=== PATIENT | female | born 1955 | race Caucasian/White ===

== ENCOUNTER → 2022-05-22 13:50 | Outpatient (REF) | payer MEDICARE, SELFPAY | LOC: DHCBS MAIN 13:50 | PROVIDERS: ATTENDING PHYSICIAN Nuclear Medicine Nuclear Cardiology; FAMILY PHYSICIAN Family Medicine | DX: R94.31 Abnormal electrocardiogram [ECG] [EKG] (principal); I49.1 Atrial premature depolarization; Z82.49 Family history of ischemic heart disease and other diseases of the circulatory system; R03.0 Elevated blood-pressure reading, without diagnosis of hypertension | CPT/HCPCS: 93306 ==

== ENCOUNTER → 2023-05-21 11:52 | Outpatient (REF) | payer MEDICARE, SELFPAY | LOC: WDC 11:52 | PROVIDERS: ATTENDING PHYSICIAN Obstetrics & Gynecology Gynecology; FAMILY PHYSICIAN Internal Medicine | DX: Z12.31 Encounter for screening mammogram for malignant neoplasm of breast (principal) | CPT/HCPCS: 77063; 77067 ==

== ENCOUNTER → 2024-01-24 09:03 | Outpatient (REF) | payer MEDICARE, BC, SELFPAY | LOC: MRI 3T 09:03 | PROVIDERS: ATTENDING PHYSICIAN Specialist; FAMILY PHYSICIAN Internal Medicine | DX: G35 Multiple sclerosis (principal) | CPT/HCPCS: 70551 ==

== ENCOUNTER 2024-01-29 10:27 | Inpatient (IN) | payer BC, MEDICARE, SELFPAY ==
[2024-01-28] VITALS (8 sets, daily range): BP systolic 133–178; BP diastolic 78–91; BMI 23.8; BMI 22.5
[2024-01-28 16:21] LABS: % Basophils 0.3 % (0-2); % Eosinophils 0.9 % (0-6); % Immature Granulocytes 0.6 % (0-0.5); % Lymphocytes 19.2 % (20.5-51.1); % Monocytes 7.4 % (1.7-9.3); % Neutrophils 71.6 % (42.2-75.2); Absolute Eosinophils 0.1 10^3/uL (0-0.7); Absolute Immature Granulocytes 0.1 10^3/uL (0-0.05); Absolute Lymphocytes 1.7 10^3/uL (1.2-3.4); Absolute Monocytes 0.7 10^3/uL (0.1-0.6); Absolute Neutrophils 6.4 10^3/uL (1.4-6.5); Hematocrit 38.5 % (37.0-47.0); Hemoglobin 12.3 g/dL (12.0-16.0); Mean Corp Hgb Conc. 31.9 g/dL (33.0-37.0); Mean Corpuscular Hgb 24.9 pg (27.0-31.0); Mean Corpuscular Volume 78.1 fL (81.0-99.0); Mean Platelet Volume 9.5 fL (7.4-10.4); Nucleated Red Blood Cells % 0 %; Platelet Count 266 10^3/uL (130-400); Red Blood Cell Count 4.93 10^6/uL (4.20-5.40); Red Cell Dist. Width 14.6 % (11.5-14.5); White Blood Cell Count 8.9 10^3/uL (4.8-10.8)
[2024-01-28 16:36] LABS: Blood Urea Nitrogen 17 mg/dl (7-17); Calcium 8.3 mg/dl (8.4-10.2); Carbon Dioxide 24 mmol/L (22-30); Chloride 104 mmol/L (98-107); Estimated Creatinine Clearance 75 ml/min; Glucose 108 mg/dl (70-99); Potassium 3.4 mmol/L (3.5-5.1); Sodium 137 mmol/L (135-145); eGFR > 60.00
[2024-01-28] MEDS: TORADOL 30 MG IM (18:00)
[2024-01-28] MEDS: ROXICODONE 5 MG PO ×2 (18:00→23:33)
--- NOTE | 2024-01-28 20:32 | ED.GENMED ---
History of Present Illness
General
Chief Complaint: Fall
Source: patient
Exam Limitations: none
Time Seen by Provider: 01/28/24 16:27
Nursing documentation reviewed up to this point in time: agreed with
History of Present Illness
History of Present Illness:
68-year-old female past medical history of MS, hypertension presenting to the emergency department after mechanical trip and fall earlier today hitting her right hip unable to ambulate since was given fentanyl en route denies any head trauma neck
pain numbness weakness or additional injuries.
Review of Systems
Review of Systems
Allergies reviewed?: Yes
All Other Systems: ROS reviewed and negative except as documented in HPI and ROS
Phy Exam
Physical Exam
Physical Exam:
GENERAL: Alert , in no apparent distress
EYE: pupils equal and reactive
NECK: Supple, no significant adenopathy.
ENT: o/p clr, mmm.
CARDIAC: Regular rate and rhythm .
LUNGS: Clear breath sounds bilaterally, no acute respiratory distress, no wheezes/rales/rhonchi
ABDOMEN: Soft, without focal tenderness, no r/g, no cvat
NEUROLOGICAL: Alert and oriented, no focal neuro deficits
SKIN: Warm and dry, skin intact.
MUSCULOSKELETAL: Discomfort to the right hip and pelvis no edema, well perfused.
PSYCH: Normal and appropriate interaction.
Course
Orders/Labs/Results
Orders:
Orders
01/28/24 16:12
CR Hip - RT w/wo Pel 2-3 Vw* Urgent
Comment:
Reason For Exam: fall
Include a pelvis x-ray?: Yes
01/28/24 16:14
BMP [Basic Metabolic Panel] Urgent
Complete Blood Count/With Diff Urgent
01/28/24 17:26
Ketorolac [Toradol] 30 mg IM NOW STA
Oxycodone [Roxicodone] 5 mg PO NOW STA
Pt Eval And Treat Urgent
Activity Level: Ambulate
01/28/24 17:59
CT Pelvis W/o Iv Contrast Urgent
Comment:
Reason For Exam: fall pelvic fx
Abnormal Lab Results
01/28/24
16:14
MCV 78.1 L fL
(81.0-99.0)
MCH 24.9 L pg
(27.0-31.0)
MCHC 31.9 L g/dL
(33.0-37.0)
RDW 14.6 H %
(11.5-14.5)
Abs Immat Gran (auto) 0.1 H 10^3/uL
(0-0.05)
Absolute Monos (auto) 0.7 H 10^3/uL
(0.1-0.6)
Immature Gran % 0.6 H %
(0-0.5)
Lymphocytes % 19.2 L %
(20.5-51.1)
Potassium 3.4 L mmol/L
(3.5-5.1)
Glucose 108 H mg/dl
(70-99)
Calcium 8.3 L mg/dl
(8.4-10.2)
01/28/24 16:14
01/28/24 16:14
Vital Signs
Initial and Last Documented VS:
Initial Vital Signs
BP
178/82
01/28/24 16:00
Last Documented Vital Signs
Temp Pulse Resp BP Pulse Ox
97.8 F 76 11 133/78 97
01/28/24 16:01 01/28/24 20:00 01/28/24 20:00 01/28/24 20:00 01/28/24 19:30
MDM/Problems Addressed
MDM/Problems Addressed:
68-year-old female presenting to the emergency department after mechanical trip and fall injuring her right pelvic region. Here she was found to have an inferior pubic rami fracture. Case was discussed with Ortho CT scan was obtained confirming
this without additional injuries. Patient unable to ambulate well here was given Oxy as well as Toradol without enough relief to be able to ambulate. Plan to admit for PT assessment.
*Critical Care Note
Total Time (30-74mins, 75-104mins- exclusive of procedures): Not Applicable
ED Attending Note
-
Portions of this chart may have been created with voice recognition software.� Occasional wrong word or��sound alike� substitutions may have occurred due to the inherent limitations of voice recognition software.
Discharge Plan
Departure
Patient Disposition: Admit
Date of Disposition: 01/28/24
Time of Disposition: 20:35
Admit to: Med/Surg
Admit to doctor: Peyton
Presentation/result/management discussed w/ accepting MD/DO: Hospitalist
Patient with high blood pressure during this ER visit?: No
Condition: Good
Covid-19: Not Applicable
Discharge Problem:
Closed pelvic fracture
Prescriptions:
No Action
sennosides [senna] 8.6 mg Tablet
8.6 mg PO HS
atorvastatin 10 mg Tablet
10 mg PO HS
alendronate 70 mg Tablet
70 mg PO TU
meloxicam 7.5 mg Tablet
7.5 mg PO DAILYPRN PRN (Reason: mild pain)
lorazepam 0.5 mg Tablet
0.5 mg PO TIDPRN PRN (Reason: anxiety)
apple cider vinegar 600 mg Capsule
600 mg PO HS
metoprolol succinate 25 mg Tablet Extended Release 24 Hr
12.5 mg PO HS
estradiol 0.01 % (0.1 mg/gram) Cream
1 appful VAGINAL SUTH
cranberry 500 mg Capsule
500 mg PO DAILY
cyclobenzaprine 5 mg Tablet
5 mg PO HSPRN PRN (Reason: muscle spasms)
cholecalciferol (vitamin D3) [Vitamin D3] 25 mcg (1,000 unit) Tablet
25 mcg PO DAILY
calcium carbonate-vitamin D3 [Calcium 600 + D(3)] 600 mg-10 mcg (400 unit) Tablet
1 tab PO DAILY
desvenlafaxine succinate 50 mg Tablet Extended Release 24 Hr
50 mg PO HS
Rx Instructions:
take with 25mg for total of 75mg
L-Methylfolate Formula 7.5-90.314 mg Capsule
1 cap PO DAILY
desvenlafaxine succinate 25 mg Tablet Extended Release 24 Hr
25 mg PO HS
Rx Instructions:
take with 50mg for total of 75mg
Referrals:
Kevin Farrell I., DO [Family Provider] -
Interventions
Interventions:
*Risk Screen - Suicide Last Done: 01/28/24 16:01
*General Assessment Last Done: 01/28/24 16:01
*Neglect/Abuse Screening Last Done: 01/28/24 16:01
*ED COVID-19 Vaccine History Last Done: 01/28/24 16:01
ED-Musculoskeletal Assessment Last Done: 01/28/24 16:10
ED- Neurological Assessment Last Done: 01/28/24 16:08
ED-Skin Assessment Last Done: 01/28/24 16:10
Discharge Date and Time
Print Language: BENGALI
--- NOTE | 2024-01-28 20:46 | HPS.HSE ---
Family Physician
-
Family Physician: Kevin Farrell
Chief Complaint
-
fall
History of Present Illness
Patient is a 68-year-old female with past medical history significant for multiple sclerosis, hyperlipidemia, SVT (supraventricular tachycardia), depression and anxiety who presented to [facility] for evaluation of pain and inability to ambulate
status post fall. Patient states she lost her footing when getting up from couch in her bedroom and ended up falling in doorway to bathroom. She required assistance to get up and was unable to ambulate so she sat in a desk chair and wheeled to bed
where she transferred to bed. Patient states she has pain in right buttocks and right groin area, currently a 5/10 on pain scale. She denies any incontinence episodes, hitting her head or LOC.
Medical History
Past Medical History
Past Medical History: Reports Other
Additional Past Medical History:
multiple sclerosis
hyperlipidemia
depression
anxiety
mixed incontinence urge and stress
Hx melanoma
Past Surgical History: Reports Other
Additional Past Surgical History:
vaginal hysterectomy
MOHS for stage 0 melanoma
cataract extraction
bilateral shoulder surgery
epidural injection for herniated disc
Social History
Tobacco: Non-smoker
Alcohol: Occasional
Drug: Marijuana (edibles at times to help sleep)
Personal:
Living: With Family
Employment: Retired
Family History
Family History: Not pertinent
Allergies / Home Medications
Allergies reflects when Allergies were last updated in [facility].
Home Medications with original date entered in [facility]
Allergy/Medication List:
Allergies
Allergy/AdvReac Type Severity Reaction Status Date / Time
nitrofurantoin Allergy Rash Verified 09/03/22 04:27
[From Macrobid]
Penicillins Allergy Rash Verified 09/03/22 04:27
Home Medications
alendronate 70 mg tablet 70 mg PO TU 01/28/24
apple cider vinegar 600 mg capsule 600 mg PO HS 01/28/24
atorvastatin 10 mg tablet 10 mg PO HS 01/28/24
calcium 600 mg (as carbonate)-vitamin D3 10 mcg (400 unit) tablet (Calcium 600 + D(3)) 1 tab PO DAILY 01/28/24
cholecalciferol (vitamin D3) 25 mcg (1,000 unit) tablet (Vitamin D3) 25 mcg PO DAILY 01/28/24
cranberry 500 mg capsule 500 mg PO DAILY 01/28/24
cyclobenzaprine 5 mg tablet 5 mg PO HSPRN PRN muscle spasms 01/28/24
desvenlafaxine succinate 25 mg tablet,extended release 24 hr 25 mg PO HS 01/28/24
desvenlafaxine succinate 50 mg tablet,extended release 24 hr 50 mg PO HS 01/28/24
estradiol 0.01% (0.1 mg/gram) vaginal cream 1 appful vaginal SUTH 01/28/24
levomefolate 7.5 mg-algal oil 90.314 mg capsule 1 cap PO DAILY 01/28/24
lorazepam 0.5 mg tablet 0.5 mg PO TIDPRN PRN anxiety 01/28/24
meloxicam 7.5 mg tablet 7.5 mg PO DAILYPRN PRN mild pain 01/28/24
metoprolol succinate 25 mg tablet,extended release 24 hr 12.5 mg PO HS 01/28/24
sennosides 8.6 mg tablet (senna) 8.6 mg PO HS 01/28/24
Review of Systems
-
History Source: Patient
Constitutional: Reports No Symptoms
EENT: Reports No Symptoms
Respiratory: Reports No Symptoms
Cardiac: Reports No Symptoms
Abdomen/GI: Reports No Symptoms
: Reports No Symptoms
Musculoskeletal: Reports Other (pain in right buttocks and right groin )
Skin: Reports No Symptoms
Neurological: Reports No Symptoms
Endocrine: Reports No Symptoms
Hematologic/Lymphatic: Reports No Symptoms
Psych: Reports No Symptoms
Physical Exam
Vital Signs
Vital Signs
Temp Pulse Resp BP Pulse Ox
97.8 F 76 11 133/78 97
01/28/24 16:01 01/28/24 20:00 01/28/24 20:00 01/28/24 20:00 01/28/24 19:30
Physical Exam
General: Well Developed, Well Nourished, No Apparent Distress, Conversant and Pain (with movement )
HEENT: NormoCephalic, Moist mucous membranes and Atraumatic
Respiratory: Clear and Non Labored Respirations
Cardiac: S1/S2 and Regular Rhythm; No Murmur, Rub or Gallop
Breast: Deferred by me
GI: Soft, Non Tender, Non Distended and Normal Bowel Sounds; No Organomegaly
Rectal: Deferred by Provider
Genito-urinary: Deferred by me
Musculoskeletal: No Clubbing, No Cyanosis, No Edema and Other (limited ROM to RLE)
Skin: Warm and IV/Catheter Site; No Rash
Neuro: Awake, Alert, AO x 3 and Nonfocal/grossly intact
Hematologic/Lymphatic: No Lymphadenopathy
Psych: Calm and Intact Judgment/Insight
Laboratory Results
-
01/28/24 16:14
01/28/24 16:14
Data Reviewed
-
Diagnostic Radiology: Report Reviewed by me (Hip:Comminuted displaced fractures of the right superior and inferior pubic rami extending to the pubic symphysis. Intact right hip. Mild to moderate degenerative changes of the pubis symphysis, both
hips, bilateral sacroiliac joints and partially visualized lower lumbar spine. Soft tissues are nehemias)
Lab Data: Labs Reviewed by me
Impression/Plan
-
IMPRESSION/PLAN:
#pubic rami fx
Hip X-ray: Comminuted displaced fractures of the right superior and inferior pubic rami extending to the pubic symphysis. Intact right hip. Mild to moderate degenerative changes of the pubis symphysis, both hips, bilateral
sacroiliac joints and partially visualized lower lumbar spine. Soft tissues are grossly unremarkable.
Pelvic CT: Right superior and inferior pubic rami fractures. Probable small intramuscular hematomas involving the right internal and external obturator externus muscles.
Right upper sacral fracture.
- Admit to med/surg
- pain management
- PT/OT consults
#SVT (supraventricular tachycardia)
- continue metoprolol
#hyperlipidemia
- continue atorvastatin
#depression
#anxiety
- continue desvenlafaxine and lorazepam PRN
#spinal stenosis
- continue cyclobenzaprine and meloxicam
#mixed incontinence urge and stress
- continue estradiol
#multiple sclerosis
diagnosis 1994
multiple fall history
recent MRI mild and stable
#Hx melanoma
Had MOHS for removal
Code Status: Full Code
DVT Prophylaxis:
--- NOTE | 2024-01-28 21:03 | W.PN.UPDATE ---
Update Note
Progress Note Update
Patient seen in conjunction with ELIE. I agree with findings on history and physical as well as concur with the assessment and plan with stated otherwise.
This is a 68-year-old female who has a past medical history of osteoporosis, hypertension and anxiety presenting to the emergency department after a fall. The patient had a mechanical fall when attempting to stand up from stool she got entangled in
some sheets and then fell onto her right side. There was no loss of consciousness. She was initially able to be stood up by help at home. However she complained of pain took Advil and asked for ice. She called her spouse will call the EMS.
Patient denies any history of chest pain palpitations lightheadedness or dizziness. She is not on any blood thinners. She does not take aspirin. She takes NSAIDs occasionally. She did not strike her head.
Evaluation in the ED revealed normal vital signs with a blood pressure of 130/78 and a pulse of 76. CBC was normal. BUN and creatinine and electrolytes were all within normal limits. He had a pelvic CT showing a right superior and inferior pubic
rami fracture and a right or probable sacral fracture. There was possible small associated hematoma. Case discussed with Dr. Payton by ED. No emergent injury. Cannot ambulate in the ED.
On my examination patient is able to move her hips. She is able to bend the hip. However she has tightness when trying to raise leg completely of the bed. Pulses were intact bilaterally. There was normal sensation. There was no external or
internal rotation of the leg.
Admit to med surg for ambulatory dysfunction
- regular diet, pain control, PT evaluation
- dvt ppx w/ SCDs given possible hematoma.
- continue her usual statin, metoporlol, desvenlafaxine and prn lorazepam
Full Code
[2024-01-28] MEDS: SENOKOT 8.6 MG PO (23:34)
[2024-01-28] MEDS: LIPITOR 10 MG PO (23:34)
[2024-01-28] MEDS: TOPROL XL 12.5 MG PO (23:34)
[2024-01-28] MEDS: PRISTIQ 25 MG PO (23:35)
[2024-01-28] MEDS: PRISTIQ 50 MG PO (23:35)
[2024-01-28] MEDS: FLEXERIL 5 MG PO (23:35)
[2024-01-29 07:00] VITALS: BP 117/65
[2024-01-29 07:36] LABS: Hemoglobin 11.5 g/dL (12.0-16.0); Mean Corp Hgb Conc. 31.1 g/dL (33.0-37.0); Mean Corpuscular Hgb 24.8 pg (27.0-31.0); Mean Corpuscular Volume 79.9 fL (81.0-99.0); Mean Platelet Volume 9.9 fL (7.4-10.4); Platelet Count 238 10^3/uL (130-400); Red Blood Cell Count 4.63 10^6/uL (4.20-5.40); Red Cell Dist. Width 14.6 % (11.5-14.5); White Blood Cell Count 6.5 10^3/uL (4.8-10.8)
[2024-01-29 07:58] LABS: Blood Urea Nitrogen 15 mg/dl (7-17); Calcium 8.8 mg/dl (8.4-10.2); Carbon Dioxide 29 mmol/L (22-30); Chloride 101 mmol/L (98-107); Estimated Creatinine Clearance 65 ml/min; Glucose 106 mg/dl (70-99); Potassium 4.2 mmol/L (3.5-5.1); Sodium 137 mmol/L (135-145); eGFR > 60.00
[2024-01-29] MEDS: ZOFRAN 4 MG IV (08:11)
[2024-01-29] MEDS: VITAMIN D3 (cholecalciferol) 25 MCG PO (08:12)
[2024-01-29] MEDS: OSCAL 500 + D 500 MG PO (08:12)
[2024-01-29] MEDS: ROXICODONE 5 MG PO ×2 (08:15→14:27)
[2024-01-29 10:35] VITALS: BP 122/53; BP 135/63; PULSE 83; O2SAT 97
[2024-01-29 13:37] VITALS: BP 122/53; PULSE 83
[2024-01-29] MEDS: TYLENOL 1000 MG PO (14:23)
--- NOTE | 2024-01-29 14:46 | W.PN.HOSP.TC ---
Today's Communication/Plan
-
Discharge
Assessment / Plan
Assessment / Plan
68-year-old female presented to the hospital after a fall and difficulty ambulating.
Hip [id number] displaced fractures of the right superior and inferior pubic rami extending into the pubic symphysis. Intact right hip. Mild to moderate degenerative changes of the pubic symphysis both hips and bilateral sacroiliac joints and
partially visualized lower lumbar spine.
Pelvic CT-Slightly comminuted and displaced fractures of the right superior and inferior pubic rami with sparing of the pubis symphysis. Probable small intramuscular hematomas involving the right internal and external obturator externus muscles.
Slightly comminuted minimally displaced fracture involving the anterior aspect of the right upper hemisacrum close to the anterior aspect of the right sacroiliac joint without convincing intra-articular extension.
CVS: S1-S2 normal
Chest: CTA B/L
Abdomen: Soft, NT
Extremities: No edema
MANAGER OF PROJECT MANAGEMENT: Non focal exam
# Comminuted and displaced Pelvic fractures with hematomas
Orthopedics to comment if any intervention is needed
Pain management.
Patient already on cyclobenzaprine and meloxicam from before-continue that
Oxycodone added with relief
Discussed about constipation risks .
PT OT- Recommends Home PT
# SVT-continue metoprolol
# Hypokalemia-resolved
# Hyperlipidemia-continue atorvastatin
# Anxiety and depression-continue desvenlafaxine and lorazepam as needed
# History of spinal stenosis-continue cyclobenzaprine and meloxicam
# Multiple sclerosis diagnosed in 1994
# History of melanoma with history of Mohs surgery
# DVT prophylaxis-SCDs given hematomas and fractures
# Full code
D/w RN at bed side
D/W Case management
D/W Partner and updated.
D/W Ortho , wbat OK for discharge
IF oK will discharge
More than 30 minutes spent in discharge including
Final examination of the patient
Summarizing hospital stay
Instructions for continuing care to all relevant caregivers
Preparation of discharge records, prescriptions, and referral forms
Total time spent (in minutes): 32 min
Anticipated Discharge: Within 24 hours
Subjective/Interval History
-
Date of Service: January 29, 2024
Objective Data
-
Labs:
Laboratory Results
01/29/24
07:07
WBC 6.5
Hgb 11.5 L
Hct 37.0
Plt Count 238
Sodium 137
Potassium 4.2
Chloride 101
Carbon Dioxide 29
BUN 15
Creatinine 0.7
Glucose 106 H
Calcium 8.8
Vital Signs:
Vital Signs
Temp Pulse Resp BP Pulse Ox
97.8 F 83 16 117/65 100
01/29/24 07:00 01/29/24 07:00 01/29/24 07:00 01/29/24 07:00 01/29/24 07:00
I&O
01/28/24 01/29/24 01/30/24
06:59 06:59 06:59
Output Total 250 / 250
Balance -250 / -250
--- NOTE | 2024-01-29 14:53 | CM ---
Patient seen bedside.
IA completed.
Lives with spouse in 2 story home with 2 steps to enter.
moved bed to first floor.
Patient independent prior to admission.
no hx VN in the past.
dx pelvic fracture.
PT/PT recommending home with VN.
PCP: Dr Farrell
pharmacy: [facility]
Plan: home with [facility], possible RW.
[2024-01-29 15:00] VITALS: BP 139/74
--- NOTE | 2024-01-29 15:41 | VNURNOTE ---
Home Health Liaison met with patient at bedside to discuss [facility] nurse/therapy, visits, schedule and homebound status. Patient is agreeable and understands that visits at home will be 2-3 x per week to assess and teach medical management. Rx for
nicole evangelista faxed to [facility].
[facility] brochure provided with contact information. Patient is aware that [facility] will contact them for start of care in 1-2 days after discharge from .
[facility] referral completed in [facility].
--- NOTE | 2024-01-29 15:50 | W.DS.TRANS ---
Addendum entered and electronically signed by Julio Zayas MD 01/29/24 17:22:
Dictation- [id number]
Original Note:
DC Summary - Content Curator
-
Discharge Instructions:
Discharge Diagnosis/Procedures Pelvic fracture
History of SVT
High cholesterol
Anxiety and depression
Spinal stenosis
History of melanoma
Diet As tolerated
Activity As tolerated,With assistance
Additional Activity Use a walker and weight-bear as tolerated
Driving Restrictions No driving
Other Services VN,PT,OT
Instructions:
Stand-Alone Forms:
Changes to Home Medications: Yes
Discharge Medications:
DC Medications w/original date entered in [employer]
alendronate 70 mg tablet 70 mg PO [facility] 01/28/24
atorvastatin 10 mg tablet 10 mg PO HS High Cholesterol 01/28/24
calcium 600 mg (as carbonate)-vitamin D3 10 mcg (400 unit) tablet (Calcium 600 + D(3)) 1 tab PO DAILY Supplement 01/28/24
cholecalciferol (vitamin D3) 25 mcg (1,000 unit) tablet (Vitamin D3) 25 mcg PO DAILY Supplement 01/28/24
cyclobenzaprine 5 mg tablet 5 mg PO HSPRN PRN muscle spasms 01/28/24
desvenlafaxine succinate 25 mg tablet,extended release 24 hr 25 mg PO HS Mental Health/Anxiety 01/28/24
desvenlafaxine succinate 50 mg tablet,extended release 24 hr 50 mg PO HS Mental Health/Anxiety 01/28/24
estradiol 0.01% (0.1 mg/gram) vaginal cream 1 appful vaginal SUTH Hormonal Agent 01/28/24
lorazepam 0.5 mg tablet 0.5 mg PO TIDPRN PRN anxiety 01/28/24
meloxicam 7.5 mg tablet 7.5 mg PO DAILYPRN PRN mild pain 01/28/24
metoprolol succinate 25 mg tablet,extended release 24 hr 12.5 mg PO HS Blood Pressure 01/28/24
acetaminophen 500 mg tablet (Tylenol Extra Strength) 1,000 mg (2 x 500 mg) PO Q8H Pain #0 tabs 01/29/24
famotidine 20 mg tablet 20 mg PO BID while taking Mobic #0 tabs 01/29/24
oxycodone 5 mg tablet 5 mg PO Q4HPRN PRN moderate pain #20 tabs 01/29/24
polyethylene glycol 3350 17 gram oral powder packet 17 g PO DAILY Constipation #0 ea 01/29/24
sennosides 8.6 mg tablet (senna) 8.6 mg PO BID Gastrointestinal Issue #0 tabs 01/29/24
Home Medication Changes
Oxycodone, famotidine, MiraLAX are new
Pending Results: No
--- NOTE | 2024-01-29 15:50 | W.[place]-PDMP ---
[place]-PDMP
-
Checked the [place]- Prescription Drug Monitoring Program website, no red flags identified; safe to proceed with prescription.
[2024-01-29] MEDS: SENOKOT 8.6 MG PO (15:58)
[2024-01-29] MEDS: MIRALAX 17 GRAMS PO (15:58)
[2024-01-29 19:55] LABS: Hepatitis C Antibody Negative (Negative)
== END 2024-01-29 18:15 | disposition home health service (06) | DRG 552 ==
LOC: 1 ACUTE 10:27
PROVIDERS: Nurse Practitioner Family; ADMITTING PHYSICIAN Internal Medicine; ATTENDING PHYSICIAN Hospitalist; EMERGENCY PHYSICIAN Student in an Organized Health Care Education/Training Program; FAMILY PHYSICIAN Internal Medicine
DX: S32.10XA Unspecified fracture of sacrum, initial encounter for closed fracture (principal); S32.591A Other specified fracture of right pubis, initial encounter for closed fracture; I47.10 Supraventricular tachycardia, unspecified; G35 Multiple sclerosis; F41.9 Anxiety disorder, unspecified; F32.A Depression, unspecified; E78.00 Pure hypercholesterolemia, unspecified; E87.6 Hypokalemia; M48.00 Spinal stenosis, site unspecified; W07.XXXA Fall from chair, initial encounter; R29.6 Repeated falls
CPT/HCPCS: 72192; 73502; 80048; 85025; 85027; 86803; 93005; 96372; 97162; 97167; 97530; 99285

== ENCOUNTER 2024-03-18 12:33 | Emergency (ER) | payer BC, SELFPAY ==
[2024-03-18 12:47] VITALS: BP 180/87
[2024-03-18 13:14] LABS: % Basophils 0.4 % (0-2); % Eosinophils 1.9 % (0-6); % Immature Granulocytes 0.1 % (0-0.5); % Lymphocytes 18.3 % (20.5-51.1); % Neutrophils 72.3 % (42.2-75.2); Absolute Eosinophils 0.2 10^3/uL (0-0.7); Absolute Lymphocytes 1.5 10^3/uL (1.2-3.4); Absolute Monocytes 0.6 10^3/uL (0.1-0.6); Absolute Neutrophils 6.1 10^3/uL (1.4-6.5); Hematocrit 38.2 % (37.0-47.0); Hemoglobin 12.1 g/dL (12.0-16.0); Mean Corp Hgb Conc. 31.7 g/dL (33.0-37.0); Mean Corpuscular Hgb 25.3 pg (27.0-31.0); Mean Corpuscular Volume 79.7 fL (81.0-99.0); Mean Platelet Volume 9.3 fL (7.4-10.4); Nucleated Red Blood Cells % 0 %; Platelet Count 451 10^3/uL (130-400); Red Blood Cell Count 4.79 10^6/uL (4.20-5.40); Red Cell Dist. Width 14.6 % (11.5-14.5); White Blood Cell Count 8.4 10^3/uL (4.8-10.8)
[2024-03-18 13:27] LABS: ALT (SGPT) 11 U/L (0-35); AST (SGOT) 22 U/L (14-36); Alkaline Phosphatase 75 U/L (38-126); Blood Urea Nitrogen 19 mg/dl (7-17); Calcium 9.3 mg/dl (8.4-10.2); Carbon Dioxide 28 mmol/L (22-30); Chloride 97 mmol/L (98-107); Glucose 109 mg/dl (70-99); Potassium 4.8 mmol/L (3.5-5.1); Sodium 135 mmol/L (135-145); Total Bilirubin 0.4 mg/dl (0.2-1.3); Total Protein 7.5 g/dl (6.3-8.2); eGFR > 60.00
[2024-03-18 17:01] VITALS: BP 153/80
--- NOTE | 2024-03-18 17:21 | ED.GENMED ---
History of Present Illness
General
Chief Complaint: Dizziness
Time Seen by Provider: 03/18/24 16:34
History of Present Illness
History of Present Illness:
68-year-old female presents to the emergency department for evaluation of brief episodes of dizziness after standing today. She was at an orthopedic appointment today and she got dizzy after standing up from an x-ray table and was thus encouraged
to seek emergency department evaluation. She states the dizzy episodes last approximately 10 to 15 seconds before resolving. No associated headache or LOC. Denies chest pain or shortness of breath. Denies any gait instability
Review of Systems
Review of Systems
Allergies reviewed?: Yes
All Other Systems: ROS reviewed and negative except as documented in HPI and ROS
Phy Exam
Physical Exam
Physical Exam:
GEN: Well appearing, NAD, WDWN
HEENT: Oral mucosa moist, no scleral icterus, no nasal congestion
Cardiac: Regular rate
Lung: No respiratory distress, no tachypnea
MSK: No gross deformity or injuries
Skin: Good color, no pallor or jaundice, no rashes
Neuro: AO x3; CN II-XII grossly intact. BUE strength 5/5 in all fontenot, sensation intact and symmetric. BLE strength 5/5 in all fontenot, sensation intact and symmetric. Normal [id number] and [id number]-[id number]. Gait steady, uses cane at baseline, no
listing or ataxia. No nystagmus seen with position change
Psych: Calm, cooperative
Course
Orders/Labs/Results
Orders:
Orders
03/18/24 12:35
Electrocardiogram (*1) Urgent
Reason for Study: Vertigo / Dizzy
EKG- Treatment ONCE
03/18/24 12:56
Complete Blood Count/With Diff Urgent
Comprehensive Metabolic Panel Urgent
03/18/24 17:21
Meclizine [Antivert] 12.5 mg PO NOW STA
Abnormal Lab Results
03/18/24
12:56
MCV 79.7 L fL
(81.0-99.0)
MCH 25.3 L pg
(27.0-31.0)
MCHC 31.7 L g/dL
(33.0-37.0)
RDW 14.6 H %
(11.5-14.5)
Plt Count 451 H 10^3/uL
(130-400)
Lymphocytes % 18.3 L %
(20.5-51.1)
Chloride 97 L mmol/L
(98-107)
BUN 19 H mg/dl
(7-17)
Glucose 109 H mg/dl
(70-99)
03/18/24 12:56
03/18/24 12:56
Vital Signs
Initial and Last Documented VS:
Initial Vital Signs
Temp Pulse Resp BP Pulse Ox
97.9 F 74 16 180/87 100
03/18/24 12:47 03/18/24 12:47 03/18/24 12:47 03/18/24 12:47 03/18/24 12:47
Last Documented Vital Signs
Temp Pulse Resp BP Pulse Ox
97.9 F 78 16 153/80 98
03/18/24 12:47 03/18/24 17:01 03/18/24 17:01 03/18/24 17:01 03/18/24 17:01
MDM/Problems Addressed
MDM/Problems Addressed:
Although there is no visible nystagmus her brief episodic vertigo suspicious for benign positional vertigo. I was unable to provoke vertigo in the emergency department and she is not orthostatic with blood pressure measurements. Offered trial of
meclizine however the patient does not wish to stay in the emergency department any longer due to the prolonged wait, provided with this medication for home use, also provided with outpatient information for vestibular therapy should symptoms persist
*Critical Care Note
Total Time (30-74mins, 75-104mins- exclusive of procedures): Not Applicable
ED Attending Note
-
Portions of this chart may have been created with voice recognition software.� Occasional wrong word or��sound alike� substitutions may have occurred due to the inherent limitations of voice recognition software.
Discharge Plan
Departure
Patient Disposition: Home (Routine Discharge)
Date of Disposition: 03/18/24
Time of Disposition: 17:22
Patient with high blood pressure during this ER visit?: No
Discharge Problem:
Benign paroxysmal positional vertigo
Instructions: Vertigo (a type of dizziness)
Prescriptions:
New
meclizine 12.5 mg tablet
12.5 mg PO TID PRN (Reason: dizziness) Qty: 10 0RF
No Action
atorvastatin 10 mg Tablet
10 mg PO HS
alendronate 70 mg Tablet
70 mg PO TU
meloxicam 7.5 mg Tablet
7.5 mg PO DAILYPRN PRN (Reason: mild pain)
lorazepam 0.5 mg Tablet
0.5 mg PO TIDPRN PRN (Reason: anxiety)
metoprolol succinate 25 mg Tablet Extended Release 24 Hr
12.5 mg PO HS
estradiol 0.01 % (0.1 mg/gram) Cream
1 appful VAGINAL SUTH
cyclobenzaprine 5 mg Tablet
5 mg PO HSPRN PRN (Reason: muscle spasms)
cholecalciferol (vitamin D3) [Vitamin D3] 25 mcg (1,000 unit) Tablet
25 mcg PO DAILY
calcium carbonate-vitamin D3 [Calcium 600 + D(3)] 600 mg-10 mcg (400 unit) Tablet
1 tab PO DAILY
desvenlafaxine succinate 50 mg Tablet Extended Release 24 Hr
50 mg PO HS
Rx Instructions:
take with 25mg for total of 75mg
desvenlafaxine succinate 25 mg Tablet Extended Release 24 Hr
25 mg PO HS
Rx Instructions:
take with 50mg for total of 75mg
polyethylene glycol 3350 17 gram Powder In Packet
17 g PO DAILY Qty: 0 0RF
acetaminophen [Tylenol Extra Strength] 500 mg Tablet
1,000 mg PO Q8H Qty: 0 0RF
famotidine 20 mg Tablet
20 mg PO BID Qty: 0 0RF
oxycodone 5 mg Tablet
5 mg PO Q4HPRN PRN (Reason: moderate pain) Qty: 20 0RF
sennosides [senna] 8.6 mg Tablet
8.6 mg PO BID Qty: 0 0RF
Interventions
Interventions:
*Risk Screen - Suicide Last Done: 03/18/24 12:47
*General Assessment Last Done: 03/18/24 12:47
*Neglect/Abuse Screening Last Done: 03/18/24 12:47
*ED COVID-19 Vaccine History Last Done: 03/18/24 12:47
*Nursing Disposition Last Done: 03/18/24 18:00
ED- Cardiac Assessment Last Done: 03/18/24 17:01
ED- Neurological Assessment Last Done: 03/18/24 17:01
ED Swallowing Screen Last Done: 03/18/24 17:01
Discharge Date and Time
Discharge Date/Time: 03/18/24 18:01
Print Language: CHINESE
[2024-03-18] MEDS: ANTIVERT 12.5 MG PO (17:31)
== END 2024-03-18 18:01 | disposition home or self-care (01) ==
LOC: EMR 12:33
PROVIDERS: Emergency Medicine; EMERGENCY PHYSICIAN Student in an Organized Health Care Education/Training Program
DX: H81.10 Benign paroxysmal vertigo, unspecified ear (principal)
CPT/HCPCS: 99284; 80053; 85025; 93005

== ENCOUNTER 2024-04-16 14:56 | Outpatient (RCR) | payer MEDICARE, BC, SELFPAY | END 2024-04-16 23:59 | disposition home or self-care (01) | LOC: RPT 14:56 | PROVIDERS: ATTENDING PHYSICIAN Physician Assistant; FAMILY PHYSICIAN Internal Medicine | DX: M54.51 Vertebrogenic low back pain (principal); Z73.6 Limitation of activities due to disability | CPT/HCPCS: 97010; 97110; 97162; 97530 ==

== ENCOUNTER → 2024-04-29 15:52 | Outpatient (REF) | payer BC, MEDICARE, SELFPAY | LOC: MRI 3T 15:52 | PROVIDERS: ATTENDING PHYSICIAN Physician Assistant Medical; FAMILY PHYSICIAN Internal Medicine | DX: M54.16 Radiculopathy, lumbar region (principal) | CPT/HCPCS: 72148 ==

== ENCOUNTER 2024-05-10 15:01 | Outpatient (RCR) | payer BC, MEDICARE, SELFPAY | END 2024-05-10 23:59 | disposition home or self-care (01) | LOC: RPT 15:01 | PROVIDERS: ATTENDING PHYSICIAN Physician Assistant; FAMILY PHYSICIAN Internal Medicine | DX: M54.51 Vertebrogenic low back pain (principal); Z73.6 Limitation of activities due to disability | CPT/HCPCS: 97010; 97110; 97162; 97530 ==

== ENCOUNTER → 2024-06-01 13:41 | Outpatient (REF) | payer BC, MEDICARE, SELFPAY | LOC: WDC 13:41 | PROVIDERS: ATTENDING PHYSICIAN Obstetrics & Gynecology Gynecology; FAMILY PHYSICIAN Family Medicine | DX: Z12.31 Encounter for screening mammogram for malignant neoplasm of breast (principal) | CPT/HCPCS: 77063; 77067 ==

== ENCOUNTER 2024-08-12 10:05 | Outpatient (RCR) | payer BC, MEDICARE, SELFPAY | END 2024-08-12 23:59 | disposition home or self-care (01) | LOC: RPT 10:05 | PROVIDERS: ATTENDING PHYSICIAN Physician Assistant; FAMILY PHYSICIAN Physician Assistant | DX: M54.16 Radiculopathy, lumbar region (principal); M48.061 Spinal stenosis, lumbar region without neurogenic claudication; Z73.6 Limitation of activities due to disability; M62.81 Muscle weakness (generalized) | CPT/HCPCS: 97110; 97112; 97162 ==

== ENCOUNTER 2024-08-31 16:04 | Outpatient (RCR) | payer BC, MEDICARE, SELFPAY | END 2024-08-31 23:59 | disposition home or self-care (01) | LOC: RPT 16:04 | PROVIDERS: ATTENDING PHYSICIAN Physician Assistant; FAMILY PHYSICIAN Physician Assistant | DX: M54.16 Radiculopathy, lumbar region (principal); M48.061 Spinal stenosis, lumbar region without neurogenic claudication; Z73.6 Limitation of activities due to disability; M62.81 Muscle weakness (generalized) | CPT/HCPCS: 97110; 97112; 97530 ==

== ENCOUNTER → 2024-12-16 09:14 | Outpatient (REF) | payer MEDICARE, SELFPAY | LOC: RAD 09:14 | PROVIDERS: ATTENDING PHYSICIAN Family Medicine | DX: R91.1 Solitary pulmonary nodule (principal) | CPT/HCPCS: 71260; Q9967 ==

== ENCOUNTER → 2025-01-31 13:58 | Outpatient (REF) | payer MEDICARE, SELFPAY | LOC: RAD 13:58 | PROVIDERS: ATTENDING PHYSICIAN Family Medicine | DX: Z78.0 Asymptomatic menopausal state (principal) | CPT/HCPCS: 77080 ==